=== PATIENT | female | born 1975 | race Caucasian/White ===

== ENCOUNTER 2017-11-07 17:21 | Emergency (ER) | payer OTHER ==
[~2017-11-07] VITALS: Ht 152.4 cm; Wt 88.5 kg
[2017-11-07] MEDS ORDERED: LEVOXYL150 MCG PO (17:45)
[2017-11-07] MEDS ORDERED: XANAX 0.25 MG0.25 MG PO (17:46)
[2017-11-07] MEDS ORDERED: LABETALOL HCL100 MG PO (17:46)
[2017-11-07] MEDS ORDERED: GLUCOPHAGE1000 MG PO (17:46)
[2017-11-07] MEDS ORDERED: VALACYCLOVIR1000 MG PO (17:46)
[2017-11-07] MEDS ORDERED: ASPIR 8181 MG PO (17:47)
[2017-11-07] MEDS ORDERED: AMITRIPTYLINE H10 M3 PO (17:47)
[2017-11-07] MEDS ORDERED: ALBUTEROL2.5 MG/31 INH (18:33)
[2017-11-07] MEDS ORDERED: PREDNISONE 10 M10 MG PO (18:33)
[2017-11-07] MEDS ORDERED: VENTOLIN HFA 1818 GM INH (18:33)
[2017-11-07 20:07] VITALS: BP 130/73
--- NOTE | 2017-11-11 11:36 | EKG ---
[place] [address] ELECTROCARDIOGRAM REPORT Name: JARAD PARKER Room: [facility]#: [id number] Admission: 11/07/17 Attend Phys: Discharge: 11/07/17 Date of : 75 Report #: [id number] THIS REPORT FOR: //name// [facility] ED Test Date: 2017-11-10 Test Time: 14:00:52 Pat Name: JARAD PARKER Department: Room: 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: Nicole JACK : 1975 Requested By: Josh Ellis Order Number: [id number] MD: Jaime Santana Measurements Intervals [place] Rate: 66 P: 51 OK: 146 QRS: 36 QRSD: 88 T: 22 QT: 369 QTc: 387 Interpretive Statements Sinus rhythm Low voltage, precordial leads Borderline ST depression, anterolateral leads Baseline wander in lead(s) II,III,aVF,V1 No previous ECG available for comparison Electronically Signed On 11-11-2017 11:36:49 CDT by Jaime Santana [email or web address] <ELECTRONICALLY SIGNED> By: Jaime Santana MD, FACC 11/11/17 1136 1400 1400 Jaime Santana MD, FAC /EPI
== END 2017-11-07 20:08 | disposition home or self-care (01) ==
LOC: M.ERS 17:21
DX: J45.901 Unspecified asthma with (acute) exacerbation (principal); I10 Essential (primary) hypertension; E03.9 Hypothyroidism, unspecified; M54.9 Dorsalgia, unspecified; G89.29 Other chronic pain; Z98.890 Other specified postprocedural states

== ENCOUNTER 2017-11-10 13:51 | Inpatient (IN) | payer OTHER ==
[~2017-11-10] VITALS: Ht 152.4 cm; Wt 95.7 kg
[~2017-11-10 13:51] MED LIST: ALBUTEROL2.5 MG/31 INH; AMITRIPTYLINE H10 M3 PO; ASPIR 8181 MG PO; GLUCOPHAGE1000 MG PO; LABETALOL HCL100 MG PO; LEVOXYL150 MCG PO; PREDNISONE 10 M10 MG PO; VALACYCLOVIR1000 MG PO; VENTOLIN HFA 1818 GM INH; XANAX 0.25 MG0.25 MG PO
[2017-11-10 13:55] VITALS: BP 148/81
[2017-11-10] MEDS ORDERED: IPRATROPIU0.2 MG/1 M INH (14:00)
[2017-11-10] MEDS ORDERED: ASMANEX220 MC2 INH (14:01)
[2017-11-10 14:21] LABS: ABSOLUTE LYMPHOCYTES 1.6 thou/uL (0.8-5.3); ABSOLUTE MONOCYTES 0.1 thou/uL (0.0-1.2); ABSOLUTE NEUTROPHILS 8.7 thou/uL (1.6-8.1); BASOPHILS 0.4 %; EOSINOPHILS 0.1 %; HEMATOCRIT 44.1 % (37.0-47.0); HEMOGLOBIN 14.4 gm/dL (12.0-15.0); LYMPHOCYTES 15.3 %; MCH 29.8 pg (26.0-34.0); MCHC 32.6 g/dL (28.0-37.0); MCV 91.6 fL (80.0-100.0); MONOCYTES 1.4 %; NUCLEATED RBCS 0 /100WBC; PLATELET COUNT* 321 thou/uL (150-400); POLYS 82.8 %; RBC 4.81 mil/uL (4.20-5.00); RDW-CV 14.2 % (10.5-14.5); WBC 10.5 thou/uL (4.0-11.0)
[2017-11-10 14:35] LABS: ANION GAP 10 mmol/L (7-16); BUN 10 mg/dL (7-18); CALCIUM 9.2 mg/dL (8.5-10.1); CHLORIDE 103 mmol/L (98-107); CO2 25 mmol/L (21-32); CREATININE 0.9 mg/dL (0.6-1.3); GLUCOSE 123 mg/dL (70-99); POTASSIUM 4.4 mmol/L (3.5-5.1); PROTIME 10.1 Seconds (9.20-11.50); SODIUM 138 mmol/L (136-145)
[2017-11-10 14:45] LABS: ALBUMIN 4.1 g/dL (3.4-5.0); ALKALINE PHOSPHATASE 75 U/L (46-116); LIPASE 177 U/L (73-393); MAGNESIUM 1.7 mg/dL (1.8-2.4); NT-PRO BRAIN NAT PEPTIDE 73 pg/mL (<300); SGOT 19 U/L (15-37); SGPT 35 U/L (30-65); TOTAL BILIRUBIN 0.3 mg/dL (<0.1-1.0); TOTAL PROTEIN 7.6 g/dL (6.4-8.2); TROPONIN-I LEVEL <0.06 ng/mL (<0.06)
[2017-11-10 15:38] VITALS: BP 148/81
[2017-11-10 16:30] VITALS: BP 127/76
--- NOTE | 2017-11-10 18:44 | NUR ---
PATIENT ADM TO UNIT AT 1615. A&OX4, 2L O2 VIA NC. IV LEFT AC FLUIDS INFUSSING. UP AD MONIKA, STEADY GIAT. NO C/O PIAN/N/V. R/O CHRONIC BACK PAIN. NO OTHER CONCERNS AT THIS TIME. APPROPRIATE AND COOPORATIVE WITH CARE.
[2017-11-11 00:22] VITALS: BP 126/75
[2017-11-11 04:22] LABS: HEMATOCRIT 41.7 % (37.0-47.0); HEMOGLOBIN 13.5 gm/dL (12.0-15.0); MCH 29.6 pg (26.0-34.0); MCHC 32.4 g/dL (28.0-37.0); MCV 91.4 fL (80.0-100.0); MPV 7.3 fl. (7.2-11.1); RBC 4.56 mil/uL (4.20-5.00); RDW-CV 14.2 % (10.5-14.5); WBC 13.3 thou/uL (4.0-11.0)
[2017-11-11 04:51] LABS: CALCIUM 9.1 mg/dL (8.5-10.1); MAGNESIUM 1.8 mg/dL (1.8-2.4); POTASSIUM 4.7 mmol/L (3.5-5.1)
--- NOTE | 2017-11-11 05:14 | NUR ---
ASSESSMENT COMPLETE. PT SLEPT THROUGH THE NIGHT. IV FLUIDS AND ABX INFUSING. PT DENIES PAIN AND N/V. PT DENIES ANXIETY AND SOA DURING THE NIGHT. PT IS ON 2L PER NC PER PT REQUEST. PT IS UP AD MONIKA WITH STEADY GAIT. SEE ASSESSMENT AND VITALS FOR OTHER DETAILS. CALL LIGHT WITHIN REACH, WILL CONTINUE PLAN OF CARE
[2017-11-11 07:55] VITALS: BP 120/77
[2017-11-11 16:10] VITALS: BP 127/70
--- NOTE | 2017-11-11 18:37 | NUR ---
PATIENT A&OX4, ROOM AIR, 2L O2 PER COMFORT. IV LEFT AC FLUIDS INFUSSING. UP AD MONIKA, STEADY GIAT. WALKED AROUND NURSES STATION TODAY, SOA WITH EXERCTION. NO C/O PAIN/N/V. NO OTHER CONCERNS AT THIS TIME. APPROPRIATE AND COOPORATIVE WITH CARE.
[2017-11-12] VITALS: BP 119/66
--- NOTE | 2017-11-12 06:11 | NUR ---
ASSESSMENT COMPLETE. PT SLEPT THROUGH THE NIGHT WITHOUT ANY CONCERNS. PT HAS IV FLUIDS INFUSING. PT WEARS 1L PER NC PRN FOR SOA. PT BECOMES SOA WITH EXERTION. PT DENIES PAIN AND N/V. PT IS UP AD MONIKA WITH STEADY GAIT. SEE ASSESSMENT AND VITALS FOR OTHER DETAILS. WILL CONTINUE PLAN OF CARE
[2017-11-12 08:15] VITALS: BP 133/88
--- NOTE | 2017-11-12 13:29 | NUR ---
Nutrition: Consult received for "diet." Pt admitted with asthma exac. Regular diet. She stated her appetite and intake are good. Stated usual wt is 195#. She denied any nutrition concerns/questions/needs. Low risk.
[2017-11-12] MEDS ORDERED: KEFLEX500 M1 PO (13:30)
[2017-11-12] MEDS ORDERED: PREDNISONE 10 M10 MG PO (13:34)
[2017-11-12 13:42] VITALS: BP 133/88
--- NOTE | 2017-11-12 16:17 | NUR ---
SPOKE TO THE PATIENT TO DISCUSS HOME SITUATION, DISCHARGE PLANNING, AND TO INFORM OF THE ROLE OF CM. PATIENT ALERT, ORIENTED, AND INDEPENDENT WITH ADL'S. PATIENT WORKS. PATIENT RESIDES AT HOME WITH HER ADULT DTR. PATIENT USES 0 DME. PATIENT HAS NO HX OF HH. PATIENT DOES NOT ANTICIPATE ANY DISCHARGE PLANNING NEEDS. CM WILL REMAIN AVAILABLE TO ASSIST AND FOLLOW NEEDED.
--- NOTE | 2017-11-12 16:35 | NUR ---
PATIENT HAS BEEN A/O X 4 THIS SHIFT. HAS DENIED PAIN OR INCREASED SHORTNESS OF AIR. STATES SHORTNESS OF AIR HAS IMPROVED SINCE ADMIT, CONTINUES ON RA. SEEN BY PULMONARY THIS SHIFT, STARTED ON MUCINEX AND STEROIDS TAPERING. PATIENT UP AD MONIKA IN ROOM. CONTINUES ON IV ZOSYN, IV SALNE LOCKED. PATIENT TOLERATING MEALS. PATIENT HOPING TO BE DISCHARGED ON SUNDAY. HOURLY ROUNDING COMPLETED. CALL LIGHT WITHIN REACH. WILL CONTINUE WITH PLAN OF CARE.
--- NOTE | 2017-11-12 17:48 | NUR ---
I AGREE WITH THE DOCUMENTATION OF DAPHNIE LABOY/RIM BUSTER
[2017-11-12 23:04] VITALS: BP 134/83
--- NOTE | 2017-11-13 05:46 | NUR ---
PATIENT HAS RESTED WELL TONIGHT NO COMPLAINTS OF ANY KIND. VITAL SIGNS STABLE ON ROOM AIR. PATIENT IS UP AD MONIKA. CALL LIGHT IS IN REACH, WILL CONTINUE TO MONITOR.
--- NOTE | 2017-11-13 08:08 | CON ---
[address] [address] CONSULTATION Name: JARAD PARKER Room: [address] IN M.R.#: [id number] Admission: 11/10/17 Attend Phys: Greg Barajas, Discharge: Date of : 75 Report #: [id number] THIS REPORT FOR: //name// CC: Blank Barajas REQUESTING PHYSICIAN: Dr. Barajas. REASON FOR CONSULTATION: Asthma exacerbation, shortness of breath. DISCUSSION: The patient is a 42-year-old woman who has a long history of asthma dating back to when she was much younger. She actually has done extremely well over the last 8 years. She quit smoking 8 years ago. When she did that, she had dramatic improvement in her symptoms. She also was not getting the bouts of bronchitis, which had been another trigger for her asthma. She was not on any maintenance medication. 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 Apparently, she was asked to clean an apartment by her landlord. When she started that job middle of last week, she had done some initial dusting and vacuuming and discovered that there was a large amount of mold present. She does note years ago she had trouble when she was exposed to the mold. She started feeling short of breath and got out. She was seen in the Emergency Department here on 11/07/2017. She was evaluated in the Emergency Department and was discharged with a prescription for a new inhaler as well as medication for her nebulizer as well as a steroid taper and was seen by Dr. Bernal the following day. She was also given a prescription for steroid inhaler (Asmanex). She went to the pharmacy, did get her medications. Once again became extremely dyspneic and short of breath. Was reevaluated in the Emergency Department here on 11/10/2017. Was evaluated in the ED. She has been on high-dose IV steroids. Overall, she is feeling better. She is on room air. She is not desaturating when she ambulates. However, still having some shortness of breath when she exerts herself. Prior to the exposure, she had done well for years. In fact, the rescue inhaler she had and the albuterol of her nebulizer had . She has never been on any maintenance medications. She typically does not have any issues with change in the seasons or allergies. She has never been evaluated by an tub mender. She is aware that she had reacted to mold in the past. She does have ongoing issues with GERD. Never seen an tub mender or a quartz miner. Did quit smoking 8 years ago, as noted. She has three children; only one left at home. That child does have some Hermit Crabs as pets. However, no dogs or cats at home. PAST MEDICAL HISTORY: Besides the asthma which was triggered in the past primarily with an infection, is remarkable for meningitis that she had about 3 years ago. Was in the hospital for several weeks related to that. She does not believe that she was intubated for that. Also has history of hypothyroidism, [address] [place] [address] CONSULTATION Name: JARAD PARKER Room: [address] M.R.#: [id number] Admission: 11/10/17 Attend Phys: Greg W. Fulbright, Discharge: Date of : 75 Report #: [id number] hypertension, C-sections, chronic back pain, carpal tunnel surgery and PCOS. Also a diabetic type 2. MEDICATIONS: Her home medications had been levothyroxine, valacyclovir, metformin, labetalol, p.r.n. alprazolam, amitriptyline at bedtime and baby aspirin. Note the prednisone and Asmanex were all new medications. 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 Typically, however, she has the same clients. She typically does not use any bleach or other types of chemicals which are irritating. She does not have any issues normally doing that work. Those homes do not have any mold. FAMILY HISTORY: Mother of COPD. Son has asthma. REVIEW OF SYSTEMS: A 12-point ROS was done. Note positives above. She is not having any issues with fever, syncopal episodes, chest pain or palpitations. She does have a lot of indigestion and heartburn. Not any blood in her stools. No hemoptysis. She is having some cough today, feels a little congested, but unable to get up any secretions. No lower extremity edema. PHYSICAL EXAMINATION: GENERAL APPEARANCE: A woman who looks her stated age. Alert, cooperative. She is able to speak in full sentences. HEENT: Head is normocephalic. Her voice does sound little hoarse. Mucous membranes are moist. NECK: Negative for adenopathy. No JVD is noted. HEART: Regular rate. Minimally tachycardic. No S3 is heard. LUNGS: Show breath sounds are mildly diminished. She does have a slight prolongation of expiratory phase. Does begin coughing with deep inspiration. No wheezing is heard. No CVA tenderness. EXTREMITIES: She has no clubbing. Radial pulses are present. Lower extremities are negative for edema. No calf tenderness is noted. LABORATORY AND X-RAY FINDINGS: Chest x-ray is negative for acute findings. White blood cell count on admission was 10,500, hemoglobin 14.4 and hematocrit 44.1. Eosinophils were not elevated. White count this morning 13,300. Chem profile was normal, except for mild elevation in her glucose. Lactic acid is up to 4.2 on admission, dropped to 3.8 and last one was 4.0. No blood gases were done. IMPRESSION: 1. Asthma exacerbation. Exposure to mold appears to be her trigger. It had been an issue for her in the past and with avoidance of that, she has done well. By history, has done extremely well with her asthma since she quit smoking and not required a controller medication nor had she had [place] [address] CONSULTATION Name: JARAD PARKER Room: [address] IN [facility].#: [id number] Admission: 11/10/17 Attend Phys: Greg Barajas, Discharge: Date of : 75 Report #: [id number] inhaler or the nebulizer in years. She is improving today. 2. Gastroesophageal reflux disease, this is not a potential trigger for her asthma. 3. Diabetes mellitus type 2. RECOMMENDATIONS: 1. We will start to decrease her IV steroids. 2. Provide her with some Mucinex to help with the congestion. 3. Anticipate can discharge tomorrow assuming she continues to improve. She already has Asmanex inhaler at home. She can resume use of that in addition to an oral steroid taper. 4. Unknown how she will do retirement. Hopefully, when she is over this acute event, she will continue to as well as she had for the last 8 years. It is also possible, however, that this acute event may essentially re-trigger her asthma. <ELECTRONICALLY SIGNED> By: Sloane Driver MD 11/13/17 0808 1433 [id number] Driver MD /nt
[2017-11-13 08:45] VITALS: BP 133/80
[2017-11-13] MEDS ORDERED: SINGULAIR 10 MG10 M1 PO (11:06)
[2017-11-13] MEDS ORDERED: MUCINEX600 MG PO (11:07)
[2017-11-13 15:19] VITALS: BP 126/74
--- NOTE | 2017-11-13 15:22 | NUR ---
PATIENT GIVEN DISCHARGE INSTRUCTIONS, PRESCRIPTIONS AND WORK RELEASE. PATIENT'S IV REMOVED. PATIENT VERBALIZED UNDERSTANDING IN REGARDS TO FOLLOW UP APPOINTMENTS, NEW MEDICATIONS AND FOLLOW UP APPOINTMENTS. PATIENT DISCHARGED TO HOME WITH ALL BELONGINGS. AMBULATED OFF NURSING UNIT WITH NURSING STAFF.
== END 2017-11-13 15:29 | disposition home or self-care (01) | DRG 189 ==
LOC: M.ERS 13:51 → M.3W 14:42 → M.TBA-ER 14:42 → M.3W 16:10
PROVIDERS: Family Medicine; ADMIT Family Medicine
DX: J96.01 Acute respiratory failure with hypoxia (principal); J45.41 Moderate persistent asthma with (acute) exacerbation; E87.2 Acidosis; R65.10 Systemic inflammatory response syndrome (SIRS) of non-infectious origin without acute organ dysfunction; K21.9 Gastro-esophageal reflux disease without esophagitis; E28.2 Polycystic ovarian syndrome; J20.9 Acute bronchitis, unspecified; E03.9 Hypothyroidism, unspecified; E11.9 Type 2 diabetes mellitus without complications; I10 Essential (primary) hypertension; Z98.891 History of uterine scar from previous surgery; Z77.120 Contact with and (suspected) exposure to mold (toxic); Z79.82 Long term (current) use of aspirin; Z79.84 Long term (current) use of oral hypoglycemic drugs; Z79.899 Other long term (current) drug therapy; Z87.891 Personal history of nicotine dependence; Z82.5 Family history of asthma and other chronic lower respiratory diseases

== ENCOUNTER 2018-02-01 22:33 | Emergency (ER) | payer OTHER ==
[~2018-02-01] VITALS: Ht 152.4 cm; Wt 88.5 kg
[~2018-02-01 22:33] MED LIST changes: +ASMANEX220 MC2 INH; +IPRATROPIU0.2 MG/1 M INH; +KEFLEX500 M1 PO; +MUCINEX600 MG PO; +SINGULAIR 10 MG10 M1 PO
[2018-02-01 23:36] LABS: ABSOLUTE BASOPHILS 0.1 thou/uL (0.0-0.2); ABSOLUTE EOSINOPHILS 0.1 thou/uL (0.0-0.7); ABSOLUTE LYMPHOCYTES 1.9 thou/uL (0.8-5.3); ABSOLUTE MONOCYTES 0.4 thou/uL (0.0-1.2); ABSOLUTE NEUTROPHILS 3.6 thou/uL (1.6-8.1); BASOPHILS 1.3 %; EOSINOPHILS 2.4 %; HEMATOCRIT 41.1 % (37.0-47.0); HEMOGLOBIN 13.7 gm/dL (12.0-15.0); LYMPHOCYTES 30.9 %; MCH 29.6 pg (26.0-34.0); MCHC 33.4 g/dL (28.0-37.0); MCV 88.6 fL (80.0-100.0); MPV 7.2 fl. (7.2-11.1); NUCLEATED RBCS 0 /100WBC; PLATELET COUNT* 226 thou/uL (150-400); POLYS 59.4 %; RBC 4.64 mil/uL (4.20-5.00); RDW-CV 14.4 % (10.5-14.5)
[2018-02-01 23:42] LABS: CALCIUM 9.7 mg/dL (8.5-10.1); CREATININE 0.8 mg/dL (0.6-1.3); POTASSIUM 3.6 mmol/L (3.5-5.1)
[2018-02-01 23:47] LABS: ALBUMIN 3.8 g/dL (3.4-5.0); TOTAL BILIRUBIN 0.2 mg/dL (<0.1-1.0)
[2018-02-01] MEDS ORDERED: TUSSIONEX PENN115 ML PO (23:52)
[2018-02-01] MEDS ORDERED: IPRAT-ALBUT 0.5-3 ML PO (23:52)
[2018-02-01] MEDS ORDERED: PREDNISONE50 MG PO (23:52)
[2018-02-01] MEDS ORDERED: AMOXICILLIN875 MG PO (23:52)
[2018-02-02] MEDS ORDERED: ACETAMINOPHEN-1 EAC1 PO (00:39)
[2018-02-02 00:56] VITALS: BP 123/63
--- NOTE | 2018-02-03 11:12 | EKG ---
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: BAILEY : 1975 Requested By: Pooja Rios Order Number: [id number] Rao MD: Dash Saldivar Measurements Intervals [place] Rate: 87 P: 51 RI: 146 QRS: 38 QRSD: 102 T: 31 QT: 349 QTc: 420 Interpretive Statements Sinus rhythm Low voltage, precordial leads Baseline wander in lead(s) II,III,aVR,aVF,V1,V2,V3,V4,V5,V6 Compared to ECG 11/10/2017 14:00:52 ST (T wave) deviation no longer present Electronically Signed On 02-03-2018 11:12:44 SMALL ORDER CUTTER by Dash Saldivar [email or web address] <ELECTRONICALLY SIGNED> By: Dash Saldivar MD, [facility] 02/03/18 1112 [id number] 224 Dash Saldivar MD, [facility] /EPI
== END 2018-02-02 00:56 | disposition home or self-care (01) ==
LOC: M.ERS 22:33
PROVIDERS: Personal Emergency Response Attendant
DX: J18.9 Pneumonia, unspecified organism (principal); J45.909 Unspecified asthma, uncomplicated; E03.9 Hypothyroidism, unspecified; I10 Essential (primary) hypertension; M54.9 Dorsalgia, unspecified; G89.29 Other chronic pain; Z98.890 Other specified postprocedural states

== ENCOUNTER 2018-09-19 17:00 | Inpatient (IN) | payer OTHER ==
[~2018-09-19] VITALS: Ht 162.6 cm; Wt 97.5 kg
[~2018-09-19 17:00] MED LIST changes: +ACETAMINOPHEN-1 EAC1 PO; +AMOXICILLIN875 MG PO; +IPRAT-ALBUT 0.5-3 ML PO; +PREDNISONE50 MG PO; +TUSSIONEX PENN115 ML PO
[2018-09-19 17:12] VITALS: BP 148/86
[2018-09-19] MEDS ORDERED: DOXYCYCLINE 10100 MG PO (17:16)
--- NOTE | 2018-09-19 17:43 | NUR ---
RT AT BEDSIDE ADMINISTERING BREATHING TREATMENT.
[2018-09-19 17:58] LABS: ABSOLUTE LYMPHOCYTES 2.2 thou/uL (0.8-5.3); ABSOLUTE MONOCYTES 0.4 thou/uL (0.0-1.2); ABSOLUTE NEUTROPHILS 10.2 thou/uL (1.6-8.1); BASOPHILS 0.3 %; HEMATOCRIT 41.8 % (37.0-47.0); HEMOGLOBIN 13.4 gm/dL (12.0-15.0); LYMPHOCYTES 17.2 %; MCH 28.9 pg (26.0-34.0); MCHC 32.1 g/dL (28.0-37.0); MCV 90.3 fL (80.0-100.0); MONOCYTES 3.4 %; MPV 6.9 fl. (7.2-11.1); NUCLEATED RBCS 0 /100WBC; PLATELET COUNT* 307 thou/uL (150-400); POLYS 79.1 %; RBC 4.62 mil/uL (4.20-5.00); RDW-CV 15.7 % (10.5-14.5); WBC 12.8 thou/uL (4.0-11.0)
[2018-09-19 18:05] LABS: ALBUMIN 3.8 g/dL (3.4-5.0); CALCIUM 9.4 mg/dL (8.5-10.1); CREATININE 0.7 mg/dL (0.6-1.3); POTASSIUM 4.4 mmol/L (3.5-5.1); TOTAL BILIRUBIN 0.3 mg/dL (<0.1-1.0); TOTAL PROTEIN 7.4 g/dL (6.4-8.2)
[2018-09-19 19:40] VITALS: BP 137/82
[2018-09-19 21:24] VITALS: BP 138/85
--- NOTE | 2018-09-20 06:09 | NUR ---
RECEIVED BREATHING TREATMENTS SCHEDULED. SHE IS VERY SOB AFTER GOING TO THE RESTROOM. SHE REPORTS NO PAIN OR DIZZINESS. SHE WAS ABLE TO REST THROUGH MOST OF THE SHIFT. HER SOB WORSENS WITH ACTIVITY.
[2018-09-20 07:50] VITALS: BP 133/76
[2018-09-20 17:01] VITALS: BP 124/76
--- NOTE | 2018-09-20 17:05 | NUR ---
SW met with pt to complete initial assessment, introduce self, and SW role. Pt alert, oriented, pleasant. Pt lives at home and is independent with ADLs and mobility. Pt has dtr, friend, boyfriend who are all supportive. Pt does not anticipate any dc needs at this time. SW to remain available if any dc needs arise.
--- NOTE | 2018-09-20 18:13 | NUR ---
PATIENT RESTING IN BED. PATIENT IS UP AD MONIKA IN ROOM. PATIENT IS SHORT OF AIR WITH EXERTION BUT HAS IMPROVED THROUGHOUT THE DAY. PATIENT IS ON ROOM AIR. PATIENT DENIES ANY PAIN. PATIENT HAS GOOD APPETITE. PATIENT DENIES ANY NEEDS AT THIS TIME. CALL LIGHT WITHIN REACH. WILL CONTINUE TO MONITOR.
[2018-09-20 20:15] VITALS: BP 126/77
[2018-09-21] VITALS: BP 126/77
--- NOTE | 2018-09-21 05:13 | NUR ---
PT ALERT AND ORIENTED. VSS ON RA. ASSESSMENT DOCUMENTED. MEDS GIVEN PER EMAR. UP AD MONIKA. PT SAYS SHE FEELS CONGESTED THIS AM AND WOULD WANT MUCINEX TODAY TO HELP BREAK HER COUGH. WILL PASS ON DAY SHIFT NURSE. LAC IV WITH NS @ 100ML/HR. ANTICIPATED DC TODAY. CALL LIGHT WITHIN REACH. HOURLY ROUNDINGS MADE. WILL CONTINUE TO MONITOR.
[2018-09-21 07:40] VITALS: BP 131/81
[2018-09-21 16:43] VITALS: BP 137/83
--- NOTE | 2018-09-21 17:27 | NUR ---
ASSUMED CARE OF PATIENT AT APPROX 0730. ALERT AND ORIENTED X4. ASSESSMENT COMPLETED AND CHARTED. VSS ON ROOM AIR. NO COMPLAINTS OF PAIN, NAUSEA, OR SOA. FLUIDS AND ANTIBIOTICS INFUSED ORDERED. PATIENT UP AD MONIKA AND WALKED THE UNIT TODAY. CALL LIGHT WITHIN REACH AND USES APPROPRIATELY. HOURLY ROUNDS COMPLETED. NURSING WILL CONTINUE TO MONITOR.
[2018-09-21 19:30] VITALS: BP 130/78
[2018-09-22 03:39] LABS: HEMATOCRIT 39.2 % (37.0-47.0); HEMOGLOBIN 12.5 gm/dL (12.0-15.0); MCH 28.9 pg (26.0-34.0); MCHC 31.9 g/dL (28.0-37.0); MCV 90.6 fL (80.0-100.0); MPV 7.1 fl. (7.2-11.1); RBC 4.32 mil/uL (4.20-5.00); RDW-CV 15.9 % (10.5-14.5); WBC 18.9 thou/uL (4.0-11.0)
[2018-09-22 03:41] LABS: CALCIUM 8.5 mg/dL (8.5-10.1); CREATININE 0.8 mg/dL (0.6-1.3); MAGNESIUM 1.9 mg/dL (1.8-2.4); POTASSIUM 3.9 mmol/L (3.5-5.1)
--- NOTE | 2018-09-22 04:47 | NUR ---
PT ALERT AND ORIENTED. VERY PLEASANT. UP AD MONIKA. VSS ON RA. ASSESSMENT COMPLETED AND DOCUMENTED. MEDS GIVEN PER EMAR. LAC IV WITH NS @ 100ML/HR. PT DENIES N/V/P THIS SHIFT. PT'S DAUGHTERS VISITED EARLIER INTO THE SHIFT. CALL LIGHT WITHIN REACH. PT CALLS OUT APPROPRIATELY. HOURLY ROUNDINGS MADE. ANTICIPATED DC TO HOME TODAY. WILL CONTINUE TO MONITOR.
[2018-09-22 07:40] VITALS: BP 134/84
[2018-09-22 10:41] VITALS: BP 134/84
[2018-09-22] MEDS ORDERED: MUCINEX600 MG PO (13:45)
[2018-09-22] MEDS ORDERED: CLARITIN10 MG PO (13:45)
[2018-09-22] MEDS ORDERED: PREDNISONE 20 M20 MG PO (13:45)
--- NOTE | 2018-09-22 14:14 | NUR ---
PATIENT UP AD MONIKA THIS SHIFT. IV DC'D. DISCHARGED TO HOME PER ORDERS. VERBALIZES UNDERSTANDING OF PAPERWORK AND SCRIPTS. PATIENT AMBULATED OUT WITH NURSE AND ALL BELONGINGS.
--- NOTE | 2018-09-23 10:17 | CON ---
[address] [address] CONSULTATION Name: JARAD PARKER Room: [address] IN M.R.#: [id number] Admission: 09/19/18 Attend Phys: Edna Abel MD Discharge: 09/22/18 Date of : 75 Report #: [id number] THIS REPORT FOR: //name// CC: Edna Bernal REASON FOR CONSULTATION: Asthma exacerbation. HISTORY OF PRESENT ILLNESS: This is a pleasant 42-year-old female patient, admitted to this facility on 09/19/2018 with increasing shortness of breath and wheezing. She told me she had a diagnosis of asthma, most recently in the last year, after she moved into a house that has mold and she was admitted at that time to this facility with asthma exacerbation. Since then, she has been on Singulair, asthma, Asmanex and Breo. Things had been stable. She rarely uses her rescue inhaler and actually she prefers to use her DuoNeb. 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 She denied any sick contact, runny nose, sore throat. Two weeks ago, she developed increasing shortness of breath, cough and wheezing. She received a course of steroids 2 weeks ago, without much benefit through the Emergency Room at another facility. Then, last week, she started a repeat dose of steroids. Because symptoms did not improve, she presented to the ER and therefore was admitted. She reported that she had been short of breath with short distance walk. She denied any headache or blurring of vision, fever or sore throat. She denied any change in bowel habits, dysuria, frequency, urgency, bleeding from any orifice. She denied sputum production. She denied any recent weight change. ALLERGIES: No known drug allergies. MEDICATIONS: Home medications: She is on levothyroxine, metformin, labetalol, aspirin. She is on DuoNeb, Asmanex, montelukast and Breo. PAST SURGICAL HISTORY: Includes , carpal tunnel release. PAST MEDICAL HISTORY: Includes asthma, hypothyroidism, hypertension and chronic back pain. FAMILY HISTORY: Positive for hypertension. SOCIAL HISTORY: She smoked for around 18 years, quit a long time ago. Does not drink alcohol excessively, does not abuse drugs. REVIEW OF SYSTEMS: All systems reviewed with the patient and negative other than as mentioned above. PHYSICAL EXAMINATION: VITAL SIGNS: During my visit, she was on room air with saturation more than 90% with blood pressure 130/78, pulse 82, temperature 36.6. [place] [address] CONSULTATION Name: JARAD PARKER Room: [address] IN [facility].#: [id number] Admission: 09/19/18 Attend Phys: Edna Abel MD Discharge: 09/22/18 Date of : 75 Report #: [id number] GENERAL: She is awake, alert, oriented. No pain, no distress. HEENT: Head normocephalic, atraumatic. Pupils are reactive to light. ORAL CAVITY: Moist mucous membrane. Mallampati of 2. NECK: Supple. No palpable lymphadenopathy. No palpable thyroid. Trachea is central. External ear looks normal. CHEST: Some diminished air movement bilaterally with prolonged expiratory phase, but no wheezes. HEART: S1, S2, no murmur. ABDOMEN: Benign, soft, lax, nontender, positive bowel sounds. EXTREMITIES: Lower extremities: No edema, no calf tenderness. NEUROLOGIC: Moving 4 extremities spontaneously. No focal weakness. Cranial nerves are grossly normal. SKIN: No rash. LYMPHATICS: No palpable lymph node. LABORATORY DATA: Her chest x-ray upon hospitalization did not show acute pathology. Her white blood count was 12.8, hemoglobin 15.4, platelets of 307. Her creatinine is 0.7, BUN 12, potassium 4.4, sodium 137. IMPRESSION: 1. Asthma exacerbation. 2. History of asthma. 3. Hypertension. PLAN: The patient had been on IV steroids for a couple of days now. She is on p.o. steroids. She is feeling better. She thinks she is getting close to her baseline. At this point, I would continue the current therapy. At time of discharge, consider discharging the patient on tapering dose of steroids, starting at 60 mg p.o. daily and taper. Resume home medication Breo, DuoNebs, Singulair and bronchodilator therapy. Instructed to keep followup appointment in our office. <ELECTRONICALLY SIGNED> By: Zandra Jiang MD 09/23/18 1017 0734 [id number] Jiang MD /nt
== END 2018-09-22 14:15 | disposition home or self-care (01) | DRG 189 ==
LOC: M.ERS 17:00 → M.ORTHSURG 18:24 → M.TBA-ER 18:24 → M.ORTHSURG 19:55
PROVIDERS: Emergency Medicine Emergency Medical Services; Family Medicine; ADMIT Internal Medicine
DX: J96.01 Acute respiratory failure with hypoxia (principal); J45.901 Unspecified asthma with (acute) exacerbation; E03.9 Hypothyroidism, unspecified; I10 Essential (primary) hypertension; G89.29 Other chronic pain; M54.9 Dorsalgia, unspecified; E66.01 Morbid (severe) obesity due to excess calories; F41.9 Anxiety disorder, unspecified; Z79.82 Long term (current) use of aspirin; Z79.899 Other long term (current) drug therapy; Z87.891 Personal history of nicotine dependence; Z83.49 Family history of other endocrine, nutritional and metabolic diseases

== ENCOUNTER 2019-09-14 07:28 | Emergency (ER) | payer OTHER ==
[~2019-09-14] VITALS: Ht 152.4 cm; Wt 99.8 kg
[~2019-09-14 07:28] MED LIST changes: +CLARITIN10 MG PO; +DOXYCYCLINE 10100 MG PO; +PREDNISONE 20 M20 MG PO
[2019-09-14 10:13] VITALS: BP 167/77
== END 2019-09-14 10:05 | disposition home or self-care (01) ==
LOC: M.ERS 07:28
DX: G43.909 Migraine, unspecified, not intractable, without status migrainosus (principal); I10 Essential (primary) hypertension; J45.909 Unspecified asthma, uncomplicated; E03.9 Hypothyroidism, unspecified; G89.29 Other chronic pain; Z98.890 Other specified postprocedural states

== ENCOUNTER 2020-04-12 09:34 | Emergency (ER) | payer OTHER ==
[~2020-04-12] VITALS: Ht 152.4 cm; Wt 95.3 kg
[2020-04-12] MEDS ORDERED: PROTONIX40 M4 PO (09:50)
[2020-04-12] MEDS ORDERED: JARDIANCE25 MG PO (09:51)
[2020-04-12] MEDS ORDERED: DILTIAZEM ER180 M2 PO (09:51)
[2020-04-12] MEDS ORDERED: NAPROSYN500 MG PO (11:09)
[2020-04-12 11:27] VITALS: BP 138/84
== END 2020-04-12 11:28 | disposition home or self-care (01) ==
LOC: M.ERS 09:34
DX: S63.502A Unspecified sprain of left wrist, initial encounter (principal); M25.522 Pain in left elbow; J45.909 Unspecified asthma, uncomplicated; E03.9 Hypothyroidism, unspecified; I10 Essential (primary) hypertension; Z98.890 Other specified postprocedural states; Z79.899 Other long term (current) drug therapy; W25.XXXA Contact with sharp glass, initial encounter; Y93.89 Activity, other specified; Y92.098 Other place in other non-institutional residence as the place of occurrence of the external cause; Y99.8 Other external cause status